=== PATIENT | male | born 1965 | race Two or more races ===

== ENCOUNTER → 2019-07-22 | Day surgery (SDC) | payer OTHER ==
[~2019-07-22] VITALS: Ht 165.1 cm; Wt 68.9 kg
[~2019-07-22] MED LIST: ASPI-404 PO; CIPROFLOXACIN 400MG/200ML 200 ML IV ONE; HYDR25TA4 PO; HYDROmorphone HCL 2 MG/ML VL IV PRN; IBUP800T24 PO; IPRIH INH; LIDOCAINE 1% HCL (LOCAL ANESTH.) INJ 20ML MDV ONE; LISI-646 PO; METOCLOPRAMIDE HCL 5MG/ml INJ 2ml VIAL IV PRN; MIDAZOLAM HCL 1MG/1ML-2 ML VIAL ONE; MORPHINE SULFATE 4 MG/ML SYR/VIAL IV PRN; OME20T PO; ONDANSETRON HCL 4 MG/2 ML VIAL ONE; PRAV20TA3 PO; PROPOFOL 10 MG/ML 20 ML IV ONE; SODIUM CHLORIDE LOCK 10 ML ONE; [UNRECOGNIZED DRUG - CODE] IN; fentaNYL CITRATE 100 MCG/2 ML VL IV PRN; fentaNYL CITRATE 100 MCG/2 ML VL ONE
[2019-07-22 11:02] VITALS: BP 128/87
== END | disposition home or self-care (01) ==
LOC: SUR 07:42
PROVIDERS: ATTEND Urology
DX: N40.1 Benign prostatic hyperplasia with lower urinary tract symptoms (principal); R35.1 Nocturia; J45.909 Unspecified asthma, uncomplicated; I10 Essential (primary) hypertension; K21.9 Gastro-esophageal reflux disease without esophagitis; Z79.82 Long term (current) use of aspirin; Z79.899 Other long term (current) drug therapy; Z86.718 Personal history of other venous thrombosis and embolism
CPT/HCPCS: 52000; 55700; 76942; 88305; C1769; J0744; J2001; J2250; J2405; J2704; J3010; J7030

== ENCOUNTER 2019-07-24 13:46 | Inpatient (IN) | payer OTHER ==
[~2019-07-24] VITALS: Ht 165.1 cm; Wt 68.0 kg
[2019-07-24] MEDS ORDERED: ACETAMINOPHEN 325 MG TAB PO ONE (14:00)
[2019-07-24 14:47] LABS: Basophils # (auto) 0 uL; Basophils % (auto) 0.3 % (0.0-2.0); Eosinophils # (auto) 0 uL; Hematocrit 39.9 % (41.0-53.0); Hemoglobin 13.9 g/dL (13.5-17.5); Mean Corpuscular Hemoglobin 33.2 pg (28.0-32.0); Mean Corpuscular Hgb Conc. 34.7 g/dL (32.0-36.0); Mean Corpuscular Volume 95.8 fL (80.0-100.0); Neutrophils # (auto) 9.4 uL; Neutrophils % (auto) 81.7 % (37.0-80.0); Platelet Count (auto) 192 10^3/uL (140-450); Red Blood Cells 4.17 10^6/uL (4.5-5.90); Red Cell Distribution Width 14.2 % (11.8-14.3); White Blood Cell 11.5 10^3/uL (4.4-10.8)
[2019-07-24 15:06] LABS: Albumin 3.3 g/dL (3.4-5.0); BUN/Creatinine Ratio 27.4; Calcium 8.3 mg/dL (8.5-10.1); Potassium 3.8 mmol/L (3.5-5.1)
[2019-07-24 15:09] LABS: Bilirubin, Total 0.6 mg/dL (0.2-1.0); Total Protein 7.3 g/dL (6.4-8.2)
[2019-07-24] MEDS ORDERED: SODIUM CHLORIDE 0.9% 1,000 ML IV ONE ×2 (15:54)
[2019-07-24 16:00] LABS: Urine Bacteria FEW /hpf (None Seen); Urine Blood 2+ /uL (Negative); Urine Mucus FEW (None Seen); Urine Specific Gravity 1.023 (1.001-1.035); Urine WBC 483 /hpf (0 - 3)
[2019-07-24] MEDS ORDERED: cefTRIAXone 1GM/50ML D5W 50 ML IV ONE (16:00)
[2019-07-24] MEDS ORDERED: AZITHROMYCIN 500MG/ 250ML 250 ML IV ONE (16:00)
[2019-07-24] MEDS ORDERED: D5W/SOD CHL 0.45% 1,000 ML IV ONE (21:45)
[2019-07-24] MEDS ORDERED: MORPHINE SULF INJ 2 MG/ML SYRINGE 1ML IV PRN (21:45)
[2019-07-24] MEDS ORDERED: NITROGLYCERIN 0.4 MG SL TAB SL PRN (21:45)
[2019-07-24] MEDS: PIPERACILLIN-TAZOB 3.375GM 100 ML IV SCH (23:32)
[2019-07-25 00:11] VITALS: BP 134/76
[2019-07-25 00:48] VITALS: BP 134/76
[2019-07-25] MEDS: HYDROcodone-ACET 10/325MG TAB PO SCH ×6 (01:56→22:00)
[2019-07-25] MEDS ORDERED: ASPI-404 PO (03:23)
[2019-07-25] MEDS ORDERED: LISI-646 PO (03:23)
[2019-07-25] MEDS ORDERED: IPRIH INH (03:23)
[2019-07-25] MEDS ORDERED: PRAV20TA3 PO (03:23)
[2019-07-25] MEDS ORDERED: HYDR25TA4 PO (03:23)
[2019-07-25] MEDS ORDERED: [UNRECOGNIZED DRUG - CODE] IN (03:23)
[2019-07-25] MEDS ORDERED: OME20T PO (03:23)
[2019-07-25] MEDS ORDERED: IBUP800T24 PO (03:23)
[2019-07-25] MEDS ORDERED: INFLUENZA QUAD 2019-2020 0.5ml SYRG IM ONE (04:00)
[2019-07-25 05:00] VITALS: BP 129/83
[2019-07-25] MEDS: PIPERACILLIN-TAZOB 3.375GM 100 ML IV SCH ×3 (06:14→22:00)
[2019-07-25 09:00] VITALS: BP 126/80
[2019-07-25 13:00] VITALS: BP 122/80
[2019-07-25] MEDS: ENOXAPARIN SOD 40 MG/0.4 ML SYRINGE SC SCH (13:26)
[2019-07-25] MEDS ORDERED: IOHEXOL 300 MG/ML 100ML BOTTLE IJ ONE (13:43)
[2019-07-25] MEDS ORDERED: OMNIPAQUE ORAL SOLN 500ml 12mg/ml PO ONE (13:43)
[2019-07-25 22:00] VITALS: BP 137/93
[2019-07-26 05:00] VITALS: BP 123/86
[2019-07-26] MEDS: PIPERACILLIN-TAZOB 3.375GM 100 ML IV SCH ×3 (05:37→21:57)
[2019-07-26] MEDS: HYDROcodone-ACET 10/325MG TAB PO SCH ×4 (06:00→18:00)
[2019-07-26 06:53] LABS: Basophils # (auto) 0 uL; Basophils % (auto) 0.3 % (0.0-2.0); Eosinophils # (auto) 0 uL; Eosinophils % (auto) 0.2 % (0.0-7.0); Hematocrit 41.8 % (41.0-53.0); Hemoglobin 14.6 g/dL (13.5-17.5); Lymphocytes # (auto) 0.9 uL; Lymphocytes % (auto) 13.1 % (10.0-50.0); Mean Corpuscular Hemoglobin 33.6 pg (28.0-32.0); Mean Corpuscular Volume 96.1 fL (80.0-100.0); Monocytes # (auto) 0.8 uL; Monocytes % (auto) 12.4 % (0.0-12.0); Nucleated Red Blood Cells % 0.1 %; Platelet Count (auto) 191 10^3/uL (140-450); Red Blood Cells 4.35 10^6/uL (4.5-5.90); Red Cell Distribution Width 13.9 % (11.8-14.3); White Blood Cell 6.8 10^3/uL (4.4-10.8)
[2019-07-26 07:08] LABS: Potassium 3.5 mmol/L (3.5-5.1)
[2019-07-26 07:18] LABS: Albumin 2.8 g/dL (3.4-5.0); BUN/Creatinine Ratio 22.2; Bilirubin, Total 0.5 mg/dL (0.2-1.0); Calcium 8.5 mg/dL (8.5-10.1); Total Protein 6.8 g/dL (6.4-8.2)
[2019-07-26 09:37] VITALS: BP 141/82
[2019-07-26 13:05] VITALS: BP 124/76
[2019-07-26 17:49] VITALS: BP 134/86
[2019-07-26] MEDS: ENOXAPARIN SOD 40 MG/0.4 ML SYRINGE SC SCH (18:00)
[2019-07-26] MEDS: TAMSULOSIN HYDROCHLORIDE 0.4 MG CAP PO SCH (18:00)
[2019-07-26 22:00] VITALS: BP 124/74
[2019-07-27] MEDS: HYDROcodone-ACET 10/325MG TAB PO SCH ×5 (02:00→18:00)
[2019-07-27 06:00] VITALS: BP 115/73
[2019-07-27] MEDS: PIPERACILLIN-TAZOB 3.375GM 100 ML IV SCH ×3 (06:03→21:43)
[2019-07-27] MEDS: ENOXAPARIN SOD 40 MG/0.4 ML SYRINGE SC SCH (09:28)
[2019-07-27 13:00] VITALS: BP 125/76
[2019-07-27 17:00] VITALS: BP 117/78
[2019-07-27] MEDS: TAMSULOSIN HYDROCHLORIDE 0.4 MG CAP PO SCH (17:28)
[2019-07-27 20:00] VITALS: BP 127/55
[2019-07-27 23:28] VITALS: BP 127/55
[2019-07-28] MEDS: HYDROcodone-ACET 10/325MG TAB PO SCH ×5 (01:49→17:32)
[2019-07-28 05:00] VITALS: BP 127/79
[2019-07-28] MEDS: PIPERACILLIN-TAZOB 3.375GM 100 ML IV SCH ×3 (05:37→22:13)
[2019-07-28 09:00] VITALS: BP 116/59
[2019-07-28] MEDS: ENOXAPARIN SOD 40 MG/0.4 ML SYRINGE SC SCH (09:00)
[2019-07-28 13:00] VITALS: BP 105/73
[2019-07-28 16:33] VITALS: BP 123/79
[2019-07-28] MEDS: TAMSULOSIN HYDROCHLORIDE 0.4 MG CAP PO SCH (17:32)
[2019-07-28 21:37] VITALS: BP 123/80
[2019-07-29] MEDS: HYDROcodone-ACET 10/325MG TAB PO SCH ×6 (02:00→17:56)
[2019-07-29 05:08] VITALS: BP 108/68
[2019-07-29] MEDS: PIPERACILLIN-TAZOB 3.375GM 100 ML IV SCH ×3 (06:17→22:16)
[2019-07-29 09:00] VITALS: BP 109/71
[2019-07-29] MEDS: ENOXAPARIN SOD 40 MG/0.4 ML SYRINGE SC SCH (10:00)
[2019-07-29 13:00] VITALS: BP 113/75
[2019-07-29 17:00] VITALS: BP 107/68
[2019-07-29] MEDS: TAMSULOSIN HYDROCHLORIDE 0.4 MG CAP PO SCH (17:56)
[2019-07-29 22:00] VITALS: BP 116/85
[2019-07-30] MEDS: HYDROcodone-ACET 10/325MG TAB PO SCH ×5 (02:00→18:00)
[2019-07-30 05:00] VITALS: BP 103/75
[2019-07-30] MEDS: PIPERACILLIN-TAZOB 3.375GM 100 ML IV SCH ×3 (06:08→21:12)
[2019-07-30 09:15] VITALS: BP 103/69
[2019-07-30] MEDS: ENOXAPARIN SOD 40 MG/0.4 ML SYRINGE SC SCH (09:25)
[2019-07-30 13:52] VITALS: BP 103/77
[2019-07-30 16:39] VITALS: BP 115/78
[2019-07-30] MEDS: TAMSULOSIN HYDROCHLORIDE 0.4 MG CAP PO SCH (19:02)
[2019-07-30 21:28] VITALS: BP 146/86
[2019-07-31] MEDS: HYDROcodone-ACET 10/325MG TAB PO SCH ×5 (02:00→17:59)
[2019-07-31] MEDS: PIPERACILLIN-TAZOB 3.375GM 100 ML IV SCH ×3 (05:21→22:54)
[2019-07-31 05:33] VITALS: BP 119/74
[2019-07-31 09:36] VITALS: BP 116/89
[2019-07-31] MEDS: ENOXAPARIN SOD 40 MG/0.4 ML SYRINGE SC SCH (10:16)
[2019-07-31 14:49] VITALS: BP 117/82
[2019-07-31 16:49] VITALS: BP 127/96
[2019-07-31] MEDS: TAMSULOSIN HYDROCHLORIDE 0.4 MG CAP PO SCH (17:57)
[2019-07-31 21:55] VITALS: BP 123/79
[2019-08-01] MEDS: HYDROcodone-ACET 10/325MG TAB PO SCH ×4 (02:00→13:50)
[2019-08-01 05:47] VITALS: BP 116/79
[2019-08-01] MEDS: PIPERACILLIN-TAZOB 3.375GM 100 ML IV SCH ×3 (06:25→21:57)
[2019-08-01 09:00] VITALS: BP 132/81
[2019-08-01] MEDS: ENOXAPARIN SOD 40 MG/0.4 ML SYRINGE SC SCH (10:02)
[2019-08-01 13:00] VITALS: BP 124/82
[2019-08-01] MEDS ORDERED: HYDROcodone-ACET 10/325MG TAB PO PRN (14:15)
[2019-08-01 17:00] VITALS: BP 122/70
[2019-08-01] MEDS: TAMSULOSIN HYDROCHLORIDE 0.4 MG CAP PO SCH (17:56)
[2019-08-01 20:00] VITALS: BP 126/76
[2019-08-01 22:00] VITALS: BP 126/72
[2019-08-02] MEDS: PIPERACILLIN-TAZOB 3.375GM 100 ML IV SCH ×3 (05:33→21:57)
[2019-08-02 06:00] VITALS: BP 110/72
[2019-08-02 09:39] VITALS: BP 121/75
[2019-08-02] MEDS: ENOXAPARIN SOD 40 MG/0.4 ML SYRINGE SC SCH (09:47)
[2019-08-02 13:41] VITALS: BP 117/86
[2019-08-02 16:43] VITALS: BP 110/72
[2019-08-02] MEDS: TAMSULOSIN HYDROCHLORIDE 0.4 MG CAP PO SCH (18:08)
[2019-08-02] MEDS: TERAZOSIN HCL 1 MG CAP PO SCH (21:58)
[2019-08-02 22:00] VITALS: BP 119/76
[2019-08-03 05:46] VITALS: BP 107/69
[2019-08-03] MEDS: PIPERACILLIN-TAZOB 3.375GM 100 ML IV SCH ×3 (05:54→22:09)
[2019-08-03 06:47] LABS: Basophils # (auto) 0 uL; Basophils % (auto) 0.6 % (0.0-2.0); Eosinophils # (auto) 0.2 uL; Eosinophils % (auto) 2.8 % (0.0-7.0); Hematocrit 38.6 % (41.0-53.0); Hemoglobin 13.3 g/dL (13.5-17.5); Lymphocytes # (auto) 2.1 uL; Lymphocytes % (auto) 33.5 % (10.0-50.0); Mean Corpuscular Hemoglobin 33.6 pg (28.0-32.0); Mean Corpuscular Hgb Conc. 34.4 g/dL (32.0-36.0); Mean Corpuscular Volume 97.6 fL (80.0-100.0); Monocytes # (auto) 0.9 uL; Monocytes % (auto) 13.8 % (0.0-12.0); Neutrophils # (auto) 3.1 uL; Neutrophils % (auto) 49.3 % (37.0-80.0); Nucleated Red Blood Cells % 0.1 %; Platelet Count (auto) 235 10^3/uL (140-450); Red Blood Cells 3.96 10^6/uL (4.5-5.90); Red Cell Distribution Width 14.9 % (11.8-14.3); White Blood Cell 6.3 10^3/uL (4.4-10.8)
[2019-08-03 07:07] LABS: Potassium 3.8 mmol/L (3.5-5.1)
[2019-08-03 07:14] LABS: Albumin 2.8 g/dL (3.4-5.0); BUN/Creatinine Ratio 20.3; Bilirubin, Total 0.3 mg/dL (0.2-1.0); Calcium 8.8 mg/dL (8.5-10.1); Total Protein 6.8 g/dL (6.4-8.2)
[2019-08-03 09:00] VITALS: BP 112/72
[2019-08-03] MEDS: ENOXAPARIN SOD 40 MG/0.4 ML SYRINGE SC SCH (11:30)
[2019-08-03 13:10] VITALS: BP 100/73
[2019-08-03 17:00] VITALS: BP 117/70
[2019-08-03] MEDS: TAMSULOSIN HYDROCHLORIDE 0.4 MG CAP PO SCH (17:53)
[2019-08-03] MEDS: TERAZOSIN HCL 1 MG CAP PO SCH (22:09)
[2019-08-03 22:32] VITALS: BP 134/89
[2019-08-04 05:06] VITALS: BP 115/69
[2019-08-04] MEDS: PIPERACILLIN-TAZOB 3.375GM 100 ML IV SCH ×3 (05:43→21:49)
[2019-08-04 09:00] VITALS: BP 123/60
[2019-08-04] MEDS: ENOXAPARIN SOD 40 MG/0.4 ML SYRINGE SC SCH (10:30)
[2019-08-04 13:00] VITALS: BP 113/72
[2019-08-04 17:00] VITALS: BP 118/83
[2019-08-04] MEDS: TAMSULOSIN HYDROCHLORIDE 0.4 MG CAP PO SCH (17:25)
[2019-08-04 21:42] VITALS: BP 130/82
[2019-08-04] MEDS: TERAZOSIN HCL 1 MG CAP PO SCH (21:50)
[2019-08-05 05:00] VITALS: BP 113/65
[2019-08-05] MEDS: PIPERACILLIN-TAZOB 3.375GM 100 ML IV SCH ×3 (06:00→22:12)
[2019-08-05 08:07] VITALS: BP 129/66
[2019-08-05 09:00] VITALS: BP 117/73
[2019-08-05] MEDS: ENOXAPARIN SOD 40 MG/0.4 ML SYRINGE SC SCH (10:26)
[2019-08-05 13:00] VITALS: BP 129/66
[2019-08-05 17:00] VITALS: BP 121/72
[2019-08-05] MEDS: FINASTERIDE 5 MG TAB PO SCH (17:45)
[2019-08-05] MEDS: TAMSULOSIN HYDROCHLORIDE 0.4 MG CAP PO SCH (17:45)
[2019-08-05 22:09] VITALS: BP 129/80
[2019-08-05] MEDS: TERAZOSIN HCL 1 MG CAP PO SCH (22:14)
[2019-08-06 05:19] VITALS: BP 128/72
[2019-08-06] MEDS: PIPERACILLIN-TAZOB 3.375GM 100 ML IV SCH (05:52)
[2019-08-06 09:38] VITALS: BP 115/80
[2019-08-06] MEDS: FINASTERIDE 5 MG TAB PO SCH (09:49)
[2019-08-06] MEDS ORDERED: FINASTERIDE 5 MG TAB PO SCH (10:00)
[2019-08-06] MEDS ORDERED: SULF400T11 PO (10:27)
[2019-08-06] MEDS ORDERED: FIN5T PO (10:27)
[2019-08-06] MEDS ORDERED: TAM04C PO (10:27)
[2019-08-06 11:39] VITALS: BP 115/80
[2019-08-06 13:00] VITALS: BP 115/68
== END 2019-08-06 12:00 | DRG 872 ==
LOC: EEVIPCON 13:46 → EDBD 13:46 → ER 13:46 → OVERFLOW 13:47 → EAST 07-25 00:11
PROVIDERS: ADMIT Internal Medicine; ATTEND Internal Medicine
DX: A41.9 Sepsis, unspecified organism (principal); N13.6 Pyonephrosis; E86.0 Dehydration; B96.20 Unspecified Escherichia coli [E. coli] as the cause of diseases classified elsewhere; E78.00 Pure hypercholesterolemia, unspecified; K21.9 Gastro-esophageal reflux disease without esophagitis; N40.1 Benign prostatic hyperplasia with lower urinary tract symptoms; R33.8 Other retention of urine; I10 Essential (primary) hypertension; J45.909 Unspecified asthma, uncomplicated; Z80.42 Family history of malignant neoplasm of prostate; Z79.899 Other long term (current) drug therapy; Z82.3 Family history of stroke; Z82.49 Family history of ischemic heart disease and other diseases of the circulatory system; Z23 Encounter for immunization
CPT/HCPCS: 36415; 71045; 74176; 74177; 80053; 81001; 83605; 84154; 85025; 87040; 87077; 87086; 87186; 96365; 96368; G0378; J0696; J2543